=== PATIENT | female | born 2000 | race Caucasian/White ===

== ENCOUNTER 2019-01-18 20:45 | Emergency (ER) | payer BC ==
--- OUTSIDE RECORDS SUMMARY | 2019-01-18 20:55 | XMS REPORT ---
:2000 Author Organization Formerly [facility] Address [address] [place] [address] Care Team Providers Name Role Phone Nacho Kuhn Unavailable Unavailable PROBLEMS Unknown Problems ALLERGIES No Information ENCOUNTERS Encounter Location Date Diagnosis [address] Mar, [phone] [facility] [address] [facility] Nov, [place] [address] [facility], [facility] [address] [place], [place] Oct, Dental [address] Oct, [place] [address] Sep, Dental [address] [facility] [address] Mar, [address] [facility] [address] Oct, [address] [facility] [address] Oct, [address] [facility] [address] August, [address] [facility] [address] Mar, [address] [facility] [address] Mar, [address] [facility] [address] Sep, [address] [facility] [address] Sep, [address] [facility] [address] Jun, [address] [facility] [address] [place], Jun, [facility] [address] [facility] [address] Mar, [address] [facility] [address] Mar, [address] [facility] [address] Sep, [address] [facility] [address] Sep, [address] Mar, [address] Mar, [address] Sep, [address] Sep, [address] Feb, [address] Feb, [address] IMMUNIZATIONS No Known Immunizations SOCIAL HISTORY Never Assessed REASON FOR REFERRAL FUNCTIONAL STATUS PLAN OF CARE VITAL SIGNS MEDICATIONS Unknown Medications PROCEDURES No Known procedures RESULTS No Results REASON FOR VISIT Prophy/EX6 [facility] Insurance Providers [facility] Member Patient Patient Patient Patient Patient Subscriber Subscriber Subscriber Group Insurance Plan Plan Plan Plan ID Relationship Address Phone Name Date of ID Name Date of No Type Insurance Insurance Insurance Coverage to Subscriber Address Phone Name Dates [facility] [phone] [facility] Slide self Darleen [id number] M Family [place] [address] M [facility] [id number] Planning on Full Fee Full Fee [employer] [address] [phone] [employer] [id number] Darleen [id number] BCBS [id number] BCBS [id number] [facility] [place] [facility] [id number] [facility]ide [phone] [facility] Slide self Darleen [id number] M Medical [place] [address] M Medical [facility] [place] [id number] Full Fee on [facility] [phone] [facility] Slide self Darleen [id number] M Dental [place] 02 M Dental [facility] [place] [id number] Full Fee on
[2019-01-18 21:00] VITALS: BP 118/71
[2019-01-18] MEDS ORDERED: Amoxicillin PO (*) 500 MG CAP PO ONE (21:05)
--- NOTE | 2019-01-18 21:11 | UC ---
Throat Pain/Nasal Bryson HPI - HPI Summary HPI Summary: 18-year-old female who was had cold symptoms over the past week and now with sinus pressure and yellow nasal coryza. - History of Current Complaint Chief Complaint: UCGeneralIllness Stated Complaint: SINUS COMPLAINT Time Seen by Provider: 01/18/19 20:50 Hx Obtained From: Patient - On the x-ray Hx Last Menstrual Period: 01/08/19 on BCP ?: No Onset/Duration: Gradual Onset Severity: Mild Pain Intensity: 0 Cough: Nonproductive Associated Signs & Symptoms: Positive: Sinus Discomfort, Nasal Discharge - Allergies/Home Medications Allergies/Adverse Reactions: Allergies Allergy/AdvReac Type Severity Reaction Status Date / Time No Known Allergies Allergy Verified 01/18/19 21:00 PMH/Surg Hx/FS Hx/Imm Hx Previously Healthy: Yes - Surgical History Surgical History: None - Family History Known Family History: Positive: Hypertension - Social History Occupation: Student Lives: Dormitory/Roommates Alcohol Use: Occasionally Substance Use Type: None Smoking Status (MU): Never Smoked Tobacco Review of Systems All Other Systems Reviewed And Are Negative: Yes ENT: Positive: Nasal Discharge, Sinus Congestion, Sinus Pain/Tenderness Respiratory: Positive: Cough - Nonproductive cough. Is Patient Immunocompromised?: No Physical Exam Triage Information Reviewed: Yes Appearance: Well-Appearing, No Pain Distress, Well-Nourished Vital Signs: Initial Vital Signs Temp 99.1 F 01/18/19 20:58 Pulse 96 01/18/19 20:58 Resp 18 01/18/19 20:58 BP 118/71 01/18/19 20:58 Pulse Ox 100 01/18/19 20:58 Vital Signs Reviewed: Yes Eyes: Positive: Conjunctiva Clear ENT: Positive: Pharynx normal - Yellow purulent postnasal drainage., Nasal congestion, Nasal drainage - Yellow purulent nasal coryza., TMs normal, Uvula midline Neck: Positive: Supple, Nontender, No Lymphadenopathy Respiratory: Positive: Lungs clear, Normal breath sounds, No respiratory distress, No accessory muscle use Cardiovascular: Positive: RRR, No Murmur, Pulses Normal, Brisk Capillary Refill Musculoskeletal Exam: Normal Neurological Exam: Normal Psychological Exam: Normal Skin Exam: Normal Throat Pain/Nasal Course/Dx - Course Course Of Treatment: Patient is comfortable here. Over to treat her for sinus infection and 1 dose of amoxicillin 500 mg was given here she is to continue amoxicillin 875 mg by mouth twice a day 10 days. Follow up at the [facility] if no improvement in 4 or 5 days. - Differential Dx/Diagnosis Provider Diagnosis: Sinusitis Discharge ED - Sign-Out/Discharge Documenting (check all that apply): Patient Departure All imaging exams completed and their final reports reviewed: No Studies - Discharge Plan Condition: Good Disposition: HOME Prescriptions: Amoxicillin PO (*) [Amoxicillin 875 MG (*)] 875 mg PO BID 10 Days #20 tab Patient Education Materials: Sinusitis (ED) Referrals: No Primary Care Phys,NOPCP [Primary Care Provider] - JIGNESH RACEHL [[facility]), APPLICATION, OTHER] - Additional Instructions: Increase fluids, rest, [id number] decongestant as directed. Definite follow-up with the [facility] if no improvement in 4 or 5 days. - Billing Disposition and Condition Condition: GOOD Disposition: Home
== END 2019-01-18 21:13 | disposition home or self-care (01) ==
LOC: UCCORT 20:45
DX: J32.9 Chronic sinusitis, unspecified (principal); R05 Cough
CPT/HCPCS: 99212; A9270-GY; G0463